=== PATIENT | male | born 1985 | race Caucasian/White ===

== ENCOUNTER 2022-08-23 04:54 | Emergency (ER) | payer MEDICAID ==
[~2022-08-23] VITALS: Ht 172.7 cm; Wt 73.0 kg
[2022-08-23] MEDS ORDERED: ZIPRASIDONE MESYLATE 20MG/VIAL IM ONE (05:30)
[2022-08-23 05:42] LABS: HEMATOCRIT. 40.2 % (42.0-52.0); HEMOGLOBIN. 14.1 g/dL (14.0-18.0); MEAN CORPUSCULAR VOLUME 85.5 fL (80.0-94.0); MEAN PLATELET VOLUME 6.7 fl (7.4-10.4); PLATELET 290 x1000/uL (130-400)
[2022-08-23 05:53] LABS: CHLORIDE 107 mEq/L (98-107)
[2022-08-23 06:03] LABS: ETHANOL BLOOD < 10 mg/dL
[2022-08-23 06:26] LABS: PLATELET ESTIMATE NORMAL
[2022-08-23] MEDS ORDERED: ZIPRASIDONE MESYLATE 20MG/VIAL IM NR (07:45)
[2022-08-23 08:45] LABS: *AMPHETAMINES SCREEN URINE NEGATIVE (NEGATIVE); *BARBITURATES SCREEN URINE NEGATIVE (NEGATIVE); *BENZODIAZEPINES SCREEN URINE NEGATIVE (NEGATIVE); *COCAINE SCREEN URINE NEGATIVE (NEGATIVE); CANNABINOID URINE SCREEN NEGATIVE (NEGATIVE); METHADONE URINE SCREEN NEGATIVE (NEGATIVE); OPIATES URINE SCREEN NEGATIVE (NEGATIVE); PHENCYCLIDINE URINE SCREEN NEGATIVE (NEGATIVE)
[2022-08-23 10:41] LABS: CLARITY URINE CLEAR (CLEAR); COLOR URINE YELLOW (YELLOW); KETONES URINE 2+ (NEGATIVE); LEUKOCYTE ESTERASE URINE NEGATIVE (NEGATIVE); NITRITE URINE NEGATIVE (NEGATIVE); OCCULT BLOOD URINE NEGATIVE (NEGATIVE); PROTEIN URINE NEGATIVE (NEGATIVE); SPECIFIC GRAVITY URINE 1.025 (1.005-1.030)
[2022-08-24] MEDS ORDERED: HALOPERIDOL LACTATE 5MG/ML VIAL IM STA (20:56)
[2022-08-24] MEDS ORDERED: DIPHENHYDRAMINE 50MG/ML VIAL IM STA (20:56)
[2022-08-26] MEDS ORDERED: LACTULOSE 20G/30ML UDC PO ONE (11:00)
[2022-08-27 10:12] VITALS: BP 131/87
== END 2022-08-27 11:08 | disposition short-term general hospital (02) ==
LOC: ER 04:54
DX: R45.851 Suicidal ideations (principal); Z20.822 Contact with and (suspected) exposure to COVID-19; Z86.59 Personal history of other mental and behavioral disorders
CPT/HCPCS: 36415; 80048; 80305; 80307; 80320; 80329; 81003; 85025; 87426; 96372; 99285; C9803; J1200; J1630; J3486; G0480